=== PATIENT | female | born 1990 | race American Indian/Alaskan Native ===

== ENCOUNTER 2017-10-10 12:37 | Emergency (ER) | payer SELFPAY ==
[2017-10-10 13:53] LABS: Basophils % (Auto) 0.6 % (0.0-1.8); Eosinophils % (Auto) 0.5 % (0.0-4.3); Hematocrit 39.5 % (30.3-42.9); Hemoglobin 12.3 gm/dl (10.1-14.3); Lymphocytes # (Auto) 1.8 K/mm3 (1.2-5.4); Lymphocytes % (Auto) 31.5 % (13.4-35.0); Mean Corpuscular HGB Conc 31 % (30-34); Mean Corpuscular Volume 82 fl (79-97); Monocytes # (Auto) 0.5 K/mm3 (0.0-0.8); Monocytes % (Auto) 9.2 % (0.0-7.3); Platelet Count 215 K/mm3 (140-440); Red Blood Count 4.85 M/mm3 (3.65-5.03); Red Cell Distribution Width 13.1 % (13.2-15.2)
[2017-10-10 14:01] LABS: Mean Corpuscular Hemoglobin 25 pg (28-32)
--- NOTE | 2017-10-10 14:49 | Emergency Department Report ---
Blank Doc - Documentation Documentation: 27 yo female presents to the hospital complaining of vaginal bleeding in . LMP 09/03/2017 therefore patient is 5 weeks and 3 days by LMP. Patient found out she was about one week ago and has not yet initiated care. Patient states she has had a moderate vaginal bleeding. No suprapubic pain but patient does have some right-sided abdominal pain worse with movement. This is her third and she has a history of 2 elective abortions. Patient does report that she is Rh- and has needed RhoGAM in the past. Ultrasound pending but unlikely to show anything since hcg quant is only 99 RH pending to confirm status for ED RhoGAM Discussed with patient that ultrasound will likely not show anything given her low hCG Quant and follow-up for repeat hCG testing will be the most important plan in her care.
--- NOTE | 2017-10-10 18:35 | Ultrasound Report ---
FINAL REPORT PROCEDURE: US OB TECHNIQUE: Real-time transabdominal and transvaginal sonography of the uterus, placenta, amniotic fluid, adnexa, and fetus was performed with image documentation. Measurements were obtained to determine age/size. M-mode Doppler was used to document heartbeat. CPT 71179 HISTORY: Vaginal bleeding. . COMPARISON: No prior studies are available for comparison. FINDINGS: LMP: 09/03/2017. Clinical age: 5 weeks 2 days. JIM C: 06/10/2018. UTERUS Size: 8.3 x 3.8 x 4.4 cm. Endometrial thickness: 2.8 mm. Orientation: anteverted. Cervix: Normal. Fibroids/masses: None. RIGHT Ovary: 2.9 x 2.3 x 2.8 cm. Appearance: Normal flow. LEFT Ovary: 2.9 x 1.5 x 1.8 cm. Appearance: Normal flow. Pelvic fluid: None. Other: None. IMPRESSION: No sonographic evidence of intrauterine . Consider findings could be related to very early intrauterine that is not sonographically apparent at this time. Ovaries/adnexa unremarkable. Without definite intrauterine cannot exclude ectopic although felt to be unlikely. Recommend clinical correlation, correlation with beta HCG, and short-term followup pelvic ultrasound to evaluate both these processes.
--- NOTE | 2017-10-10 18:35 | Ultrasound Report ---
FINAL REPORT PROCEDURE: US OB TECHNIQUE: Real-time transabdominal and transvaginal sonography of the uterus, placenta, amniotic fluid, adnexa, and fetus was performed with image documentation. Measurements were obtained to determine age/size. M-mode Doppler was used to document heartbeat. CPT 20376 HISTORY: Vaginal bleeding. . COMPARISON: No prior studies are available for comparison. FINDINGS: LMP: 09/03/2017. Clinical age: 5 weeks 2 days. JIM C: 06/10/2018. UTERUS Size: 8.3 x 3.8 x 4.4 cm. Endometrial thickness: 2.8 mm. Orientation: anteverted. Cervix: Normal. Fibroids/masses: None. RIGHT Ovary: 2.9 x 2.3 x 2.8 cm. Appearance: Normal flow. LEFT Ovary: 2.9 x 1.5 x 1.8 cm. Appearance: Normal flow. Pelvic fluid: None. Other: None. IMPRESSION: No sonographic evidence of intrauterine . Consider findings could be related to very early intrauterine that is not sonographically apparent at this time. Ovaries/adnexa unremarkable. Without definite intrauterine cannot exclude ectopic although felt to be unlikely. Recommend clinical correlation, correlation with beta HCG, and short-term followup pelvic ultrasound to evaluate both these processes.
--- NOTE | 2017-10-10 18:50 | Emergency Department Report ---
ED HPI - General Chief complaint: Vaginal Bleeding Stated complaint: /VAGINAL BLEEDING Time Seen by Provider: 10/10/17 14:37 Source: patient Mode of arrival: Ambulatory Limitations: No Limitations - History of Present Illness Initial comments: 27F past medical history Rh- presents with complaint of vaginal bleeding since yesterday which is moderate. Patient is complaining of slight crampy pain. Denies fever chills increased urinary frequency nausea or vomiting. Last menstrual period was one month ago. Patient states she has a history of abortions/miscarriages. Patient knows that she is Rh-. Does not currently have an [facility]. MD Complaint: vaginal bleeding Onset/Timin -: days(s) Associated symptoms: vaginal bleeding Vaginal bleeding: light :: Yes Number of weeks : 3 Last menstrual period: 09/12/17 - Related Data : 3 Para: 2 Ab: 2 Allergies Allergy/AdvReac Type Severity Reaction Status Date / Time No Known Allergies Allergy Unverified 10/10/17 12:48 ED Review of Systems ROS: Stated complaint: /VAGINAL BLEEDING Other details as noted in HPI Constitutional: denies: chills, fever Eyes: denies: eye pain, eye discharge, vision change ENT: denies: ear pain, throat pain Respiratory: denies: cough, shortness of breath, wheezing Cardiovascular: denies: chest pain, palpitations Endocrine: no symptoms reported Gastrointestinal: denies: abdominal pain, nausea, diarrhea Genitourinary: denies: urgency, dysuria, discharge Musculoskeletal: denies: back pain, joint swelling, arthralgia Skin: denies: rash, lesions Neurological: denies: headache, weakness, paresthesias Psychiatric: denies: anxiety, depression Hematological/Lymphatic: denies: easy bleeding, easy bruising ED Past Medical Hx - Past Medical History Previous Medical History?: No - Surgical History Past Surgical History?: Yes Additional Surgical History: 2 SURGERIES - Social History Smoking Status: Current Every Day Smoker Substance Use Type: Marijuana ED Physical Exam - General Limitations: No Limitations General appearance: alert, in no apparent distress - Head Head exam: Present: atraumatic, normocephalic - Eye Eye exam: Present: normal appearance - ENT ENT exam: Present: mucous membranes moist - Neck Neck exam: Present: normal inspection - Respiratory Respiratory exam: Present: normal lung sounds bilaterally. Absent: respiratory distress - Cardiovascular Cardiovascular Exam: Present: regular rate, normal rhythm. Absent: systolic murmur, diastolic murmur, rubs, gallop - GI/Abdominal GI/Abdominal exam: Present: soft, normal bowel sounds - Speculum exam: Present: vaginal bleeding - Extremities Exam Extremities exam: Present: normal inspection - Back Exam Back exam: Present: normal inspection - Neurological Exam Neurological exam: Present: alert, oriented X3 - Psychiatric Psychiatric exam: Present: normal affect, normal mood - Skin Skin exam: Present: warm, dry, intact, normal color. Absent: rash ED Course Vital Signs 10/10/17 12:42 Temperature 98.3 F Pulse Rate 71 Respiratory 18 Rate Blood Pressure 144/87 O2 Sat by Pulse 100 Oximetry ED Medical Decision Making - Lab Data Result diagrams: 10/10/17 13:35 - Medical Decision Making A/P: , vaginal bleeding less than 20 weeks, differentials include ectopic versus miscarriage, Rh- status 1-ultrasound shows no IUP at this time. I discussed all findings with Dr. Bundy 2-hCG level 99 3-H&H stable. Patient received RhoGAM 4- I specifically advised patient to return to the ED in 48 hours for repeat hCG level to trend hCG. I advised patient to return to the ED sooner rather than later or DONA if she experiences severe pain increased bleeding associated fever nausea vomiting or inability to tolerate by mouth. I provided patient with ectopic precautions. Patient stated she understood my instructions. Follow-up with [facility] Critical care attestation.: If time is entered above; I have spent that time in minutes in the direct care of this critically ill patient, excluding procedure time. ED Disposition Clinical Impression: Threatened miscarriage, Need for rhogam due to Rh negative mother Disposition: DC-01 TO HOME OR SELFCARE Is pt being admited?: No Does the pt Need Aspirin: No Condition: Stable Instructions: Rho(D) Immune Globulin (Injection), Ectopic (ED), Threatened Miscarriage (ED) Additional Instructions: Please follow up in the ED in 48 hours for repeat blood work. Please follow-up with [facility] as referred Referrals: [facility] [Provider Group] - 3-5 Days [facility] [Provider Group] - 3-5 Days Time of Disposition: 18:51
[2017-10-10 19:06] VITALS: BP 125/85
== END 2017-10-10 19:03 | disposition home or self-care (01) ==
LOC: ED 12:37
DX: O20.0 Threatened abortion (principal); O99.331 Smoking (tobacco) complicating pregnancy, first trimester; F17.200 Nicotine dependence, unspecified, uncomplicated; O99.321 Drug use complicating pregnancy, first trimester; F12.10 Cannabis abuse, uncomplicated; Z3A.01 Less than 8 weeks gestation of pregnancy
CPT/HCPCS: 36415; 76801; 76817; 84702; 85025; 86850; 86900; 86901; 96372; 99284; J2790